=== PATIENT | female | born 1975 | race Caucasian/White ===

== ENCOUNTER 2016-08-01 12:40 | Day surgery (SDC) | payer OTHER ==
[2016-08-01] VITALS (7 sets, daily range): BP systolic 106–128; BP diastolic 52–79; PULSE 80–95; RESP 11–18; O2SAT 93–98
[~2016-08-01] VITALS: Ht 167.6 cm; Wt 104.5 kg
[~2016-08-01 12:40] MED LIST: ACET325C PO; HEMP SEED OIL
[2016-08-01] MEDS ORDERED: fentaNYL-PF 50 mCg/mL 2 mL Inj ONE (12:41)
[2016-08-01] MEDS ORDERED: Propofol 10,000 mCg/mL 20 mL Inj ONE (12:41)
[2016-08-01] MEDS ORDERED: Ondansetron 2 mg/mL 2 mL Inj ONE (12:41)
[2016-08-01] MEDS ORDERED: EPHEDrine/NS 5 mg/mL 5 mL Syringe ONE (12:41)
[2016-08-01] MEDS ORDERED: Dexamethasone 4 mg/mL Inj ONE (12:41)
[2016-08-01] MEDS: Lactated Ringer's 1,000 ML IV SCH ×2 (13:18→15:09)
[2016-08-01] MEDS ORDERED: Lidocaine 1%-Epi 1:100,000 20 mL Inj INJ ONE (15:08)
--- NOTE | 2016-08-01 15:08 | PCM.HPANE ---
Patient Data Date of Service: Aug 01, 2016 Surgeon Admitting Provider: Attending Provider:John Mccurdy MD Primary Care Physician:Aimee Carrizales MD Other Provider:Mary Wilde Anesthesia Reason for Visit HANDY 2 Ht/WT & BMI Height (Feet): 5 Height (Inches): 6 Weight (Kilograms): 104.5 Body Mass Index 37.00 Allergies Coded Allergies: No Known Allergies (Unverified , 07/31/16) Past Anesthesia History Anesthesia History: Denies:: Anesthesia Reactions, Malignant Hyperthermia Diabetes History Hx Diabetes?: No MRSA MRSA: No Medications Hypertension Medication: No Home Meds Incl Beta Hayes: No Reported Medications Acetaminophen 325 Mg [id number] Mg PO Q4H PRN PRN 07/31/16 [Hemp Seed Oil] No Conflict CheckUnknown Dose 07/31/16 History History of ENT Problems?: No Teeth Condition: Missing Teeth (RUM Incisor absent) Hx of Heart Problems?: No Cardiovascular History: Denies:: Heart Murmur Hypertension Hx of Respiratory Problem?: No Respiratory History: Denies:: Use of C-PAP Machine Hx Neurologic Problems?: No Hx of GI Problems?: No Hx of Problems?: No Other History/Comment Cervical Dysplasia Female Hx: Denies:: Currently (S/P C/S HX OF MISSED AB'S X2,1 ELECTIVE TERMINATION) Skin History: Positive for:: History Skin Disorders? (S/P SKIN GRAFT AT AGE 14YRS) Denies:: Pressure Ulcers Hx Musculoskeletal Problems?: No Hx of Psycho/Social Problems?: No Hx Surgeries?: Yes (SKIN GRAFT,C/S) Hx Any Other Health Problems?: Yes Other History: Denies:: Cancer Endocrine Disease Hospitalization Thyroid Disease Hx Diabetes: No Hx Alcohol Use: YesAlcoholic Drinks Per Day: <2/DAYHave You Smoked inLast 12 mo: YesApprox How Many Cigarettes/day: RECENTLY CUT DOWN TO 3 C/DAY Stop/Bang Treated for Sleep Apnea?: No Do You Have a CPAP Machine?: No S-Snoring: Do You Snore Loudly: No T-Tired: feel tired, fatigued: No O-Obsered: Observed not breath: No P-Blood Pressure: treated: No B- Body Mass Index > 35 kg/m2: Yes A- Age over 50: No N- Neck Large Circumference: Yes G- Gender Male: No SHARON Total Score: 2 SHARON Risk Assessment: Low Risk, <3 Yes Risk Assessment Category Category 1A: Patient has history of documented sleep apnea, and HAS NOT received any narcotic, sedative or anesthesia administration during this stay. Category 1B: Patient has history of documented sleep apnea, and HAS received any narcotic , sedative or anesthesia administration during this stay Category 2: Patient has SUSPECTED Obstructive Sleep Apnea, and HAS received any narcotic , sedative or anesthesia administration during this stay. Category 3: Patient has SUSPECTED Obstructive Sleep Apnea and HAS NOT received narcotic, sedative or anesthesia administration during this stay. Category 4: Outpatient in Procedural Areas with known sleep apnea or who screen positive for High Risk via the STOP/BANG questionnaire. Exam Exam Vital Signs Vital Signs Date Time Temp Pulse Resp B/P Pulse Ox O2 Delivery O2 Flow Rate FiO2 08/01/16 12:55 36.3 80 16 106/72 96 Room Air General Appearance: Alert, Oriented X3, Cooperative, No Acute Distress HEENT/AIRWAY: MP 2 Lungs: Clear to Auscultation, Normal Air Movement Heart: Exam Unremarkable, Normal S1, Normal S2 Additional Information Obese Meds/Labs/Diagnostics Admission Meds Current Medications Lactated Ringer's (Lr) 1,000 ml @ 120 mls/hr Q8H20M IV Last administered on t 13:18; Start 08/01/16 at 05:00; Stop 08/01/16 at 13:19; Status DC Plan Impression Patient chart reviewed, patient interviewed and anesthestic plan with risks, benefits, and alternatives discussed, and informed consent obtained. NPO Status: 1000 BLACK COFFEE ASA Physical Status: ASA2 Mod Systemic Disease Anesthetic Plan: GA Bene/Risks/Altern/Consents: Yes HP Complete Prior to Induction: Yes Roberto Adler DO Aug 01, 2016 15:08
[2016-08-01] MEDS ORDERED: Lactated Ringer's 1,000 ML IV SCH (15:22)
[2016-08-01] MEDS ORDERED: Lactated Ringer's 500 ML IV PRN (15:22)
[2016-08-01] MEDS ORDERED: Phenylephrine 10,000 mCg/mL Inj IVPUSH PRN (15:25)
[2016-08-01] MEDS ORDERED: Labetalol 5 mg/mL 4 mL Inj IV PRN (15:25)
[2016-08-01] MEDS ORDERED: Dexamethasone 4 mg/mL Inj IVPUSH PRN (15:25)
[2016-08-01] MEDS ORDERED: Atropine 0.4 mg/mL Inj IVPUSH PRN (15:25)
[2016-08-01] MEDS ORDERED: fentaNYL-PF 50 mCg/mL 2 mL Inj IVPUSH PRN (15:25)
[2016-08-01] MEDS ORDERED: EPHEDrine Sulfate 50 mg/mL Inj IVPUSH PRN (15:25)
[2016-08-01] MEDS ORDERED: HYDROmorphone 1 mg/mL Inj IVPUSH PRN (15:25)
[2016-08-01] MEDS ORDERED: MetoCLOpramide 5 mg/mL 2 mL Inj IVPUSH PRN ×2 (15:25→16:25)
[2016-08-01] MEDS ORDERED: Ondansetron 2 mg/mL 2 mL Inj IVPUSH PRN ×2 (15:25→16:25)
--- NOTE | 2016-08-01 15:49 | PCM.ANEP1 ---
Post Anesthesia Phase 1 PACU Phase 1 Assessment Date of Service: Aug 01, 2016 Vital Signs Vital Signs Date Time Temp Pulse Resp B/P Pulse Ox O2 Delivery O2 Flow Rate FiO2 08/01/16 15:43 37.1 89 16 123/52 98 Simple Mask 8 08/01/16 12:55 36.3 80 16 106/72 96 Room Air Anesthetic Administered: GA Level of Alertness: Awake, talking SOSA's with Equal Strength: Yes Pain: No Nausea or Vomiting: No Oxygen Delivery: Simple Mask Lungs: Clear to Auscultation, Normal Air Movement Dermatome Level: Full Sensation Roberto Adler DO Aug 01, 2016 15:49
--- NOTE | 2016-08-01 15:53 | PCM.ANEP2 ---
Post Anesthesia Evaluation ASA/CMS Post Anesthesia Date of Service: Aug 01, 2016 VS in Patient's Normal Range?: Yes Resp Stable; Airway Patent?: Yes CV Function & Hydration Stable: Yes Mental Status Recovered?: Yes Pain control Satisfactory?: Yes N/V Control Satisfactory?: Yes Roberto Adler DO Aug 01, 2016 15:53
[2016-08-01] MEDS ORDERED: diphenhydrAMINE 25 mg Capsule PO PRN (16:25)
[2016-08-01] MEDS: oxyCODONE-Acetamin 5-325 mg Tablet PO PRN ×2 (17:00→17:18)
--- NOTE | 2016-08-02 01:16 | OP ---
[address] [address] OPERATIVE REPORT PATIENT: SMOOTH KRUEGER : 1975 MR#: [id number] ADMIT: 08/01/2016 JOB ID: [id number] DATE OF SURGERY: 08/01/2016 PREOPERATIVE DIAGNOSIS(ES): A 41 years old 4, para 1-0-3-1, with biopsy confirmed HANDY II on endocervical curettage. POSTOPERATIVE DIAGNOSIS(ES): A 41 years old 4, para 1-0-3-1, with biopsy confirmed HANDY II on endocervical curettage. PROCEDURE: Loop electrosurgical excision procedure. SURGEON: John Mccurdy MD. DISTRIBUTION COLLECTION OPERATOR: Go Quinteros MD. ANESTHESIA: General. endotracheal. ESTIMATED BLOOD LOSS: 30 cc. INTRAVENOUS FLUIDS: 500 cc of crystalloid. COMPLICATIONS: None. PACKS: None. DRAINS: None. CATHETERS: In-and-out catheter in the beginning of the procedure. Clear urine obtained. SPECIMEN REMOVED: 1. LEEP cervical cone tagged at 12 o'clock position. 2. Endocervical canal. 3. Endocervical curettage. FINDINGS: Examination under anesthesia revealed no adnexal masses appreciated bilaterally. Retroverted uterus. Smooth surface. INTRAOPERATIVE FINDINGS: Lugol's iodine applied to the cervix, yellowish discoloration observed at 12 o'clock position close to the cervical os. PROCEDURE: Risks, benefits, alternatives of the procedure discussed with the patient. Informed consent signed. Patient moved to the OR with IV running. After general anesthesia was found to be adequate, the patient was placed in dorsal lithotomy position. Examination under anesthesia revealed the above findings. The patient was prepped and draped in the normal sterile fashion. Weighted speculum inserted into the patient's vagina. Anterior lip of the cervix grasped with a single-tooth tenaculum. Lugol's then applied to the cervix. A small area of yellowish discoloration at 12 o'clock close to the cervical canal observed. Then, using a LEEP loop size 2 x 0.8 cm; cervical LEEP cone was excised and it was tagged at 12 o'clock. This was followed by using the second LEEP loop that is 15 x 12 mm size to excise part of endocervical canal site in a top hat fashion, and the second specimen was sent as endocervical canal. It was sent in two pieces as after excising the first piece the cervical canal was noted to be off the center, and the second piece was excised to achieve symmetrical specimen. Then, the cervical stump was cauterized using silver ball , Monsel solution applied. Good hemostasis assured. All instruments removed from patient's vagina. The patient tolerated the procedure well. Sponge, needle and instrument counts were correct x2. Patient moved to recovery in a stable condition. Dr. Mccurdy was present and scrubbed for the entire procedure. [facility]
--- NOTE | 2016-08-05 11:20 | PATH ---
SURGICAL PATHOLOGY Attending Physician:John Mccurdy MD CASE STATUS: Signed Out PATIENT NAME: SMOOTH KRUEGER PID: [id number] : 1975 DATE COLLECTED:08/01/2016 23:00 SPECIMEN: 1: Cervical, Cone 2: Endocervix, Biopsy 3: Endocervix, Curettage CLINICAL HISTORY: HANDY 2 1). CERVICAL LEEP/CONE, STITCH 12 O'CLOCK 2). ENDOCERVICAL CANAL 3). ENDOCERVICAL CURETTINGS FINAL DIAGNOSIS: 1.CERVICAL LEEP CONE BIOPSY: HIGH-GRADE SQUAMOUS INTRAEPITHELIAL LESION (HANDY 2) INVOLVING CERVICAL TISSUE FROM THE TRANSFORMATION ZONE. Inked margins negative for atypia. 2.TISSUE FROM ENDOCERVICAL CANAL: ENDOCERVICAL TISSUE AND TISSUE FROM THE TRANSFORMATION ZONE NEGATIVE FOR SIGNIFICANT ATYPIA. 3.ENDOCERVICAL CURETTINGS: FRAGMENTS OF ENDOCERVICAL TISSUE, NEGATIVE FOR ATYPIA. FRAGMENTS OF SECRETORY ENDOMETRIUM WITH DISORDERED MATURATION AND CHANGES OF GLANDULAR AND STROMAL BREAKDOWN, NEGATIVE FOR ATYPIA. ICD10 CODE N87.1 GROSS DESCRIPTION: The specimens are received in formalin, labeled with the patient's name, and sublabeled as the following: (1) cervical cone: 12 o'clock; (2) cervical canal; (3) endocervical curettings. (1) The specimen consists of an oriented cervical cone biopsy (1.8 cm 12:00 to 6:00, 2.4 cm 3:00 to 9:00, 0.7 cm ectocervix to endocervix). A black suture indicates 12:00. Also submitted are multiple unoriented and pieces of cervical tissue (1.8 x 1.7 x 0.4 cm in aggregate). The mucosa is blanco, smooth and shiny. The endocervix is matson and finely granular. No nodules, masses or lesions are identified. The specimen is radially sectioned and submitted clockwise from 12:00. Ink code: blue-radial; black-deep; orange-os; purple-resection margin. (1A) 12:00 to 3:00; (1B) 3:00 to 6:00; (1C) 6:00 to 9:00; (1D) 9:00 to 12:00; (1E-1F) unoriented pieces, serially sectioned, one piece in each cassette. Specimen entirely submitted. (2) The specimen consists of multiple unoriented pieces of cervical tissue (piece #1-1.9 x 0.8 x 0.3 cm; piece #2-1.7 x 1.3 x 0.2 cm; piece #3-1.8 x 1.7 x 1.1 cm). Pieces #2 and #3 are concave. The mucosa is blanco, smooth and shiny. The endocervix is rawls-matson and finely granular. The nodules, masses or lesions are identified. Ink code: black-resection margin; purple-convex surface; blue, blue over black-concave surface. Section code: (2A) piece #1, serially sectioned; (2B) piece #2, longitudinally sectioned; (2C-2D) piece #3, longitudinally sectioned. Specimen entirely submitted. (3) The specimen consists of turbid gelatinous material containing multiple fragments of matson-red and matson-white tissue (2.7 x 2.2 x 0.4 cm in aggregate). Section code: (3A) tissue. Specimen entirely submitted. 08/03/16 JM MICRO DESCRIPTION: See diagnosis. ICD-9 CODES: CPT CODES: 1: 91812 2: 57940 3: 22813 Electronically Signed Out Derrick Hopkins MD Formerly [facility] [address], [place] [address] Technical component performed at [facility], [address] [place] [address] Ave[address], [place], [address]
== END 2016-08-01 23:59 | disposition home or self-care (01) ==
LOC: SAS 12:40
PROVIDERS: ATTEND Obstetrics & Gynecology
DX: N87.1 Moderate cervical dysplasia (principal); F17.210 Nicotine dependence, cigarettes, uncomplicated
CPT/HCPCS: 57522; J1100; J2250; J2405; J3010; J7120